=== PATIENT | male | born 1950 | race Caucasian/White ===

== ENCOUNTER 2023-01-24 16:36 | Observation (INO) ==
[2023-01-24] MEDS ORDERED: LACTATED RINGERS IV ONE (17:01)
[2023-01-24 17:30] LABS: ABS Basophils 0.1 10^3/uL (0.0-0.1); ABS Monocytes 0.7 10^3/uL (0.0-1.1); Eosinophil % 0.3 %; Hematocrit 42.3 % (38-53); Hemoglobin 14.7 g/dL (13.2-16.3); Lymphocyte % 29.7 %; Mean Corpuscular Hemoglobin 34.1 pg (27-33); Mean Corpuscular Hgb Conc 34.7 g/dL (31-36); Mean Corpuscular Volume 98.5 fL (80-97); Mean Platelet Volume 7.9 fL (7.5-11.2); Nucleated Red Blood Cells % 0.1 /100 WBC (0.0-0.4); Platelet Count 185 10^3/uL (150-450); Red Cell Distribution Width 12.9 % (12-17); White Blood Count 6.8 10^3/uL (3.6-10.2)
[2023-01-24 17:44] LABS: Activated Partial Thrombo Time 29.3 seconds (26.0-38.0); INR 1.19 (0.88-1.18)
[2023-01-24 17:54] LABS: ALT 36 U/L (7-52); AST 26 U/L (13-39); Albumin 4.5 g/dL (3.2-5.2); Albumin/Globulin Ratio 2.1 (1-3); Alkaline Phosphatase 28 U/L (35-149); Anion Gap 7 mmol/L (2-16); Blood Urea Nitrogen 22 mg/dL (6-24); C Reactive Protein 2.27 mg/L (<8.01); CO2 Carbon Dioxide 27 mmol/L (22-32); Calcium 9.2 mg/dL (8.6-10.3); Chloride 98 mmol/L (101-111); Creatinine, Serum 0.92 mg/dL (0.67-1.17); Globulin 2.1 g/dL (2-4); Glucose 99 mg/dL (70-100); Sodium 132 mmol/L (135-145); Total Protein 6.6 g/dL (6.4-8.9); eGFR CKD-EPI 89.5 (>60)
[2023-01-24 19:38] LABS: Alcohol, S < 13 mg/dL (<13)
[2023-01-24 20:12] LABS: Folate > 20.00 ng/mL (5.90-24.80); Vitamin B12 515 pg/mL (180-914)
[2023-01-24 22:48] LABS: Urine Appearance Clear; Urine Bilirubin Negative (Negative); Urine Blood Negative (Negative); Urine Color Yellow; Urine Glucose Negative (Negative); Urine Ketones 1+ (Negative); Urine Nitrite Negative (Negative); Urine Protein Negative (Negative); Urine Specific Gravity 1.025 (1.002-1.030); Urine Urobilinogen Positive (Negative)
[2023-01-24 22:57] LABS: Urine Benzodiazepine Screen None Detected (None Detect); Urine Cannabinoids Screen None Detected (None Detect); Urine Opiates Screen None Detected (None Detect)
[2023-01-24] MEDS ORDERED: Senna TAB 8.6 mg TAB PO PRN (23:26)
[2023-01-24] MEDS ORDERED: Polyethylene Glycol 3350 17 GM PACKET PO PRN (23:26)
[2023-01-24] MEDS ORDERED: Enoxaparin 40 MG/0.4 ML SYR SUBCUT SCH (23:45)
[2023-01-25 06:52] LABS: ABS Basophils 0.1 10^3/uL (0.0-0.1); ABS Lymphocytes 2.3 10^3/uL (1.0-4.8); ABS Monocytes 0.7 10^3/uL (0.0-1.1); ABS Neutrophils 3.6 10^3/uL (1.5-7.6); ABS Nucleated RBC 0.01 10^3/ul; Eosinophil % 0.7 %; Hematocrit 42.1 % (38-53); Hemoglobin 14.4 g/dL (13.2-16.3); Lymphocyte % 33.9 %; Mean Corpuscular Hemoglobin 34.6 pg (27-33); Mean Corpuscular Hgb Conc 34.3 g/dL (31-36); Mean Platelet Volume 8.2 fL (7.5-11.2); Nucleated Red Blood Cells % 0.1 /100 WBC (0.0-0.4); Platelet Count 167 10^3/uL (150-450); Red Blood Count 4.17 10^6/uL (4.06-5.63); Red Cell Distribution Width 13.1 % (12-17); White Blood Count 6.8 10^3/uL (3.6-10.2)
[2023-01-25] MEDS ORDERED: Mometasone/Formoter 200/5 MDI INH SCH (07:00)
[2023-01-25 07:08] LABS: INR 1.19 (0.88-1.18)
[2023-01-25 07:26] LABS: ALT 35 U/L (7-52); AST 28 U/L (13-39); Albumin/Globulin Ratio 2.2 (1-3); Alkaline Phosphatase 27 U/L (35-149); Anion Gap 9 mmol/L (2-16); Blood Urea Nitrogen 20 mg/dL (6-24); CO2 Carbon Dioxide 27 mmol/L (22-32); Calcium 8.7 mg/dL (8.6-10.3); Chloride 102 mmol/L (101-111); Creatinine, Serum 0.89 mg/dL (0.67-1.17); Globulin 1.8 g/dL (2-4); Glucose 107 mg/dL (70-100); Potassium 4.3 mmol/L (3.5-5.0); Sodium 138 mmol/L (135-145); Total Protein 5.8 g/dL (6.4-8.9); eGFR CKD-EPI 92.2 (>60)
[2023-01-25 07:40] LABS: TSH Ultra Thyroid Stim Horm 1.63 mcIU/mL (0.34-5.60)
[2023-01-25 08:26] LABS: C Reactive Protein 2.28 mg/L (<8.01); Creatine Kinase 209 U/L (10-223)
[2023-01-25] MEDS ORDERED: Cyanocobalamin INJ 1,000 MCG/ML VIAL 1 ML VIAL IM ONE (09:28)
[2023-01-25 09:50] LABS: Erythrocyte Sed Rate 10 mm/Hr (0-19)
[2023-01-25 09:54] LABS: Rheumatoid Factor < 10 IU/mL (<15)
[2023-01-25 10:41] LABS: RBC Parasite Smear No Parasites Seen (No Parasite)
[2023-01-25 14:22] VITALS: BP 134/79
[2023-01-27 08:38] LABS: Albumin 3.1 g/dL (3.4-4.7); Albumin/Globulin Ratio 1.09; Gamma Globulin 0.8 g/dL (0.6-1.6)
[2023-01-28 17:09] LABS: Anaplasma phagocytophilum Negative (Negative); B. miyamotoi PCR, B Negative (Negative); Babesia divergens/MO-1 Negative (Negative); Babesia ducani Negative (Negative); Ehrlichia chaffeensis Negative (Negative); Ehrlichia ewingii/canis Negative (Negative); Ehrlichia muris eauclairensis Negative (Negative)
[2023-01-30 16:03] LABS: Albumin 3.1 mg/dL; Albumin/Globulin Ratio 0.46; Gamma Globulin 1.9 mg/dL; Protein,Total, Random Urine 10 mg/dL
== END 2023-01-25 16:05 | disposition home or self-care (01) ==
LOC: EDHOLD 16:36 → ED 16:36 → SUATTDRO 22:00 → MED 22:43
PROVIDERS: ADMIT Internal Medicine; ATTEND Internal Medicine